=== PATIENT | female | born 1975 | race Caucasian/White ===

== ENCOUNTER 2018-12-07 20:55 | Outpatient (REF) | payer MEDICAID, SELFPAY ==
[2018-12-07 21:17] LABS: Abs Immature Grans 0.01 k/cumm (0.0-0.09); Absolute Basophil Count 0.04 k/cumm (0.0-0.2); Absolute Eosinophil Count 0.24 k/cumm (0.0-0.7); Absolute Lymphocyte Count 1.73 k/cumm (1.2-3.4); Absolute Monocyte Count 0.65 k/cumm (0.11-0.7); Absolute Neutrophil Count 2.37 k/cumm (1.2-6.7); Basophils % 0.8; Eosinophils % 4.8; HCT 41.3 % (36.0-46.0); HGB 13.8 g/dL (12.0-15.5); Immature Grans % 0.2; Lymphocytes % 34.3; Mean Corp. HGB Concentration 33.4 g/dL (32.0-36.0); Mean Corpuscular Volume 89.8 fL (80-95); Mean Platelet Volume 10.5 fL (8.0-11.0); Monocytes % 12.9; Platelet Count 261 x1000/uL (130-400); RBC Distribution Width 12.7 % (11.7-14.6); White Blood Cell Count 5.04 k/cumm (4.4-10.8)
[2018-12-07 21:29] LABS: Anion Gap 12.8 mmol/L (3-11); BUN 12 mg/dL (7-18); CO2 25.2 mmol/L (21.0-32.0); CREATININE 0.69 mg/dL (0.55-1.02); Calcium 9.3 mg/dL (8.5-10.1); Chloride 104 mmol/L (98-107); Glucose 85 mg/dL (70-100); Potassium 3.9 mmol/L (3.5-5.1); Sodium 142 mmol/L (136-145)
== END 2018-12-07 21:15 ==
LOC: NCHCN 20:55
PROVIDERS: PCP Nurse Practitioner; Visit Provider Nurse Practitioner
DX: R53.83 Other fatigue (principal); R07.9 Chest pain, unspecified; Z51.81 Encounter for therapeutic drug level monitoring
CPT/HCPCS: 80048; 85025

== ENCOUNTER 2018-12-13 00:47 | Outpatient (CLI) | payer MEDICAID, SELFPAY ==
--- NOTE | 2018-12-13 15:03 | DI.CT_ITS ---
SYMPTOM/DIAGNOSIS: CHRONIC RT CHEST AND ARM PAIN, R07.[address]: Comparison is made with chest xray dated 10/17/18. A post contrast exam was performed. The heart and great vessels are unremarkable. No pleural or pericardial effusions, mass or adenopathy is seen. The lungs are clear. No infiltrates or pulmonary nodules are identified. No rib or spine abnormalities are seen. The liver, gallbladder, spleen, pancreas, kidneys and adrenals are unremarkable where visualized. IMPRESSION: Negative chest CT.
[2018-12-13] MEDS: Omnipaque 350 MG/ML 100 ML BTL IJ (15:04)
[2018-12-13] MEDS: Normal Saline Flush 10 ML SYR IVP (15:05)
== END 2018-12-13 01:07 ==
PROVIDERS: PCP Nurse Practitioner; Visit Provider Nurse Practitioner
DX: R07.89 Other chest pain (principal); M79.601 Pain in right arm
CPT/HCPCS: 71260; J3490

== ENCOUNTER 2018-12-28 11:23 | Outpatient (REF) | payer MEDICAID, SELFPAY ==
--- NOTE | 2018-12-28 09:00 | PAPFT_PTH ---
PATIENT: STANFORD YEBOAH LOC: [facility] U#:[id number] AGE/SX: 43/F ROOM: RE12/28/[address]: [address] : 1975 BED: DIS: 12/28/2018 SPEC #: [id number] RECD: 12/31/18 12:48 STATUS: JON REAzeb #: [id number] KAREN: 12/28/18 09:[address]: Lisa [address] DEPT: [facility], [facility] Cytology RECD BY: Maura Mallory Tissues: 1 - CX/ENDOCX FOR PAP SMEARS Procedures: PAP THIN PREP/[facility] Screening HPV DNA PROBE Comments: [id number] (CHLAMYDIA/GC)
[2019-01-01 14:43] LABS: Chlamydia Result Negative; GC Result Negative; Specimen Description SEE COMMENTS
== END 2018-12-28 11:43 ==
LOC: NCHCN 11:23
PROVIDERS: PCP Nurse Practitioner; Visit Provider Nurse Practitioner
DX: Z11.3 Encounter for screening for infections with a predominantly sexual mode of transmission (principal); Z12.4 Encounter for screening for malignant neoplasm of cervix; Z11.51 Encounter for screening for human papillomavirus (HPV); Z00.00 Encounter for general adult medical examination without abnormal findings; Z01.419 Encounter for gynecological examination (general) (routine) without abnormal findings
CPT/HCPCS: 87491; 87591; 88142; 87624

== ENCOUNTER 2019-01-04 00:25 | Outpatient (CLI) | payer MEDICAID, SELFPAY ==
--- NOTE | 2019-01-04 11:13 | DI.RAD_ITS ---
SYMPTOMS/DIAGNOSIS: NECK PAIN, M54.2, PARESTHESIA OF ARM, R20.2 CERVICAL SPINE: Seven views were obtained. There is loss of the normal cervical lordosis. The intervertebral disc spaces appear well maintained. Slight hypertrophic spurring of vertebral endplates and facet joints noted. The neural foramina not ideally visualized but grossly intact. The prevertebral soft tissues are unremarkable. CONCLUSION: Loss of cervical lordosis which may indicate muscle spasm. Mild degenerative changes. No other significant findings.
== END 2019-01-04 00:45 ==
PROVIDERS: PCP Nurse Practitioner; Visit Provider Nurse Practitioner
DX: M54.2 Cervicalgia (principal); R20.2 Paresthesia of skin; M47.812 Spondylosis without myelopathy or radiculopathy, cervical region
CPT/HCPCS: 72050

== ENCOUNTER 2019-02-07 13:54 | Outpatient (REF) | payer MEDICAID, SELFPAY ==
[2019-02-07 22:04] LABS: TSH (W/Ref FT4) 2.47 uIU/mL (0.358-3.74); Vitamin B12 573 pg/mL (193-986)
[2019-02-07 23:05] LABS: Vitamin D 25 Total 20.3 ng/ml (30-100)
== END 2019-02-07 14:14 ==
LOC: NCHCN 13:54
PROVIDERS: PCP Nurse Practitioner; Visit Provider Nurse Practitioner Family
DX: F41.8 Other specified anxiety disorders (principal)
CPT/HCPCS: 82306; 82607; 84443